=== PATIENT | male | born 1990 | race African-American/Black ===

== ENCOUNTER 2025-02-28 15:58 | Outpatient (AMB) | payer OTHER, SELFPAY ==
--- OUTSIDE RECORDS SUMMARY | 2017-12-06 19:00 | XMS_ITS | Continuity of Care Document ---
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 Name Role Phone Unavailable Unavailable Unavailable Allergies, Adverse Reactions, Alerts Substance Reaction Status Criticality No Known Allergies Active No Inform ation Procedures Procedure Date WRITTEN REPORT, MORE REFRACTION COMPREHENSIVE EYE EXAM Advance Directives Directive Yes / No Effective Date File Name No Information Encounters Encounter Description Practice Location Reason(s) For Visit Diagnoses Date Provider Providers Copied on Encounter [facility] , [address] [place] [address], [id number] , tel:[phone] Primary Care No Information No Information [facility] , [address] [place] [address], [id number] , tel:[phone] Primary Care Ocular wellness exam (chief complaint) Alternating exotropiaMyopia, bilateralRegular astigmatism, bilateral No Information Family History Family Member Type Diagnosis Age At Onset No Information Payers Payer name Insurance type Covered republican ID Authoriza tion(s) Medicare MB [id number] Social History Type Description Quantity Date Captured [...]
--- NOTE | 2025-02-28 15:58 | MHC.PC.OV ---
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 Cerebral Palsy: The patient has a history of cerebral palsy since . The patient is dependent on a walker for mobility at all times and leads a sedentary lifestyle. The patient underwent orthopedic surgery on both legs as a child. The guardian reports the patient has not received physical or occupational therapy since the age of [age] or [age]. Intellectual Disability: The patient's guardian reports that the patient has an intellectual disability. According to the guardian, the patient is unable to read or write, although the patient can write their name. The patient has not attended school or participated in work programs for the last 20 years. Seasonal Allergic Rhinitis: The patient reports being allergic to pollen in the spring. Establishment of Care: The patient recently relocated from [place] to [place], [place], and is establishing care with a new primary care provider. Prior medical care was received at [facility] in [facility]. The patient takes no medications and denies any history of smoking or illicit drug use. Surgical History: - Orthopedic surgery on both legs as a child. Medications: - The patient reports taking no medications. Social History: - The patient is a 34-year-old individual who recently moved from [place], [place], to [place], [place], with the patient's mother. - The patient's father is . - The patient's cousin is the legal guardian due to the patient's mother having an onset of dementia. - The patient denies any history of smoking or illicit drug use. - Functional Status: The patient is dependent on a walker for ambulation and lives a sedentary lifestyle. - Per the guardian, the patient is intellectually disabled and has not been involved in school or work for about 20 years. - The guardian has made home modifications, including installing grab bars and a ramp. Family History: - Father: History of diabetes and high blood pressure. - Mother: Onset of dementia. Past Medical History - Cerebral palsy, diagnosed at . - Intellectual disability, per guardian report. - Seasonal pollen allergy. - The patient has never been hospitalized for any issues. Health Maintenance - This visit serves as a routine checkup to establish primary care. - A comprehensive baseline lab panel was ordered, including CBC, comprehensive metabolic panel, thyroid function tests, vitamin B12, folate, vitamin D, lipid panel, HIV, and hepatitis B and C screening. [facility] Medical History (Updated 03/01/25 @ 08:08 by Luis Mendiola MD) Tachycardia Elevated BP without diagnosis of hypertension Seasonal allergic rhinitis Intellectual disability Cerebral palsy Family History (Updated 02/28/25 @ 16:13 by Shantanu Thompson MA) Father Diabetes High blood pressure Congestive heart failure Mother High blood pressure Social History Housing: House Patient Tobacco Use Status: Never used Tobacco service: No Current occupational status: disabled Cognitive needs: Yes Hearing needs: No Vision needs: No Questionnaire Thrive Questionnaire Date Thrive assessed: 02/18/25 I am a: Patient What is your living situation today?: I have a steady place to live Within the past 12 months, did the food you bought not last and you didn't have the money to get more?: Never true Within the past 12 months, did you worry whether your food would run out before you got money to buy more?: Never true Do you have trouble paying for medicines?: No Do you have trouble getting transportation to medical appointments?: No Do you have trouble paying your heating and electricity bill?: No Do you have trouble taking care of your child, family member or friend?: No Do you have trouble with day-to-day activities such as bathing, preparing meals, shopping, managing finances, etc.?: Yes Are you currently unemployed and looking for a job?: No Are you interested in more education?: I choose not to answer this question THRIVE Score: 0 Review of Systems Narrative Review of Systems - Allergic/Immunologic: Reports seasonal allergies to pollen in the spring. - Constitutional: Denies getting sick frequently. 10-point ROS reviewed and negative except as noted in HPI Physical exam (Primary Care) Vital Signs: Last Vital Signs Temp 97.5 F 02/28/25 16:02 Pulse 111 H 02/28/25 16:02 Resp 16 02/28/25 16:02 BP 140/79 H 02/28/25 16:02 Pulse Ox 94 02/28/25 16:02 Oxygen Delivery Method Room Air 02/28/25 16:02 BMI result Body Mass Index 21.0 Tobacco/Smoking Status: Tobacco use Status Tobacco use date assessed 02/28/25 02/28/25 15:59 Patient Tobacco Use Status Never used Tobacco 02/28/25 15:59 Thrive Assessment: Date of Thrive Assessment Date Thrive assessed 02/18/25 02/28/25 15:59 Narrative Physical Exam General: Well-appearing, in no acute distress. Vital signs: Within normal limits. HEENT: Normocephalic, atraumatic. PERRLA, EOMI. Conjunctiva clear, sclera anicteric. Oropharynx clear, mucous membranes moist. TMs intact bilaterally. Neck: Supple, no lymphadenopathy, no thyromegaly, no JVD or carotid bruits. Cardiovascular: RRR, normal S1/S2, no murmurs, rubs, or gallops. Peripheral pulses 2+ and symmetric. No edema. Respiratory: Lungs clear to auscultation bilaterally, no wheezes, rales, or rhonchi. Normal effort. Abdomen: Soft, non-tender, non-distended. Normoactive bowel sounds. No hepatosplenomegaly, no masses. MSK: Limited range of motion due to cerebral palsy. Scar noted on the right thigh. Uses a walker for ambulation. uses a walker, legs in genu valgus Skin: Warm, dry, intact. No rashes, lesions, or pallor. Neuro: Alert and oriented x3. Cranial nerves II-XII intact. Strength 5/5 throughout. Sensation intact. Reflexes 2+ symmetric. Normal coordination and gait. Psych: Appropriate mood and affect. Normal judgment and insight. Cognitive impairment noted; patient is intellectually disabled. Coding Level of Care Code New Pt Level 4 (45906) Diagnoses Cerebral palsy G80.9 Intellectual disability F79 Seasonal allergic rhinitis J30.2 Elevated BP without diagnosis of hypertension R03.0 Tachycardia R00.0 Assessment & Plan Assessment & Plan (1) Cerebral palsy: Code(s): G80.9 - Cerebral palsy, unspecified Category: Medical (2) Intellectual disability: Code(s): F79 - Unspecified intellectual disabilities Category: Medical (3) Seasonal allergic rhinitis: Code(s): J30.2 - Other seasonal allergic rhinitis Category: Medical (4) Elevated BP without diagnosis of hypertension: Code(s): R03.0 - Elevated blood-pressure reading, without diagnosis of hypertension Category: Medical (5) Tachycardia: Code(s): R00.0 - Tachycardia, unspecified Category: Medical Plan Consent The plan for a comprehensive blood panel was discussed with the patient and the patient's guardian to obtain a baseline of overall health. The specific tests to be ordered include a complete blood count, comprehensive metabolic panel, thyroid studies, vitamin B12, folate, vitamin D, lipid panel, HIV, and hepatitis B and C screening. The patient and guardian verbally consented to the plan. Patient was informed and verbally consented to the use of an ambient scribe for clinic note documentation during this visit. Plan 1. Cerebral Palsy - A referral will be placed for physical and occupational therapy. - Will complete the necessary paperwork for a handicap parking permit. - Will engage a community nurse navigator to assist with arranging SENIOR COMM[employer]CIAL LO[employer] OFFIC[employer] services and transportation. 2. Intellectual Disability - A referral will be provided to [facility] for a neuropsychological evaluation. - The community nurse navigator will assist the guardian in finding suitable community services and educational programs for the patient. 3. Health Maintenance / Establishment Of Care - Ordered a comprehensive lab panel including CBC, CMP, thyroid studies, vitamin levels (B12, Folate, D), lipid panel, and screening for HIV, Hepatitis B, and Hepatitis C. - Plan to follow up in two weeks to review the results and discuss the next steps. Discussion Notes I had a detailed discussion with the patient and the patient's guardian about the plan to establish care. I explained the rationale for ordering a comprehensive baseline blood panel to get a full picture of the patient's health. I provided a referral for neuropsychological testing to formally assess the patient's cognitive abilities and assist with eligibility for disability programs. We discussed placing referrals for physical and occupational therapy, as the patient has not received these services since childhood. I informed the guardian that our community nurse navigator will be in contact to help coordinate access to community resources, including S[employer]IOR [employer] LO[employer]ER and transportation services. We agreed on a follow-up appointment in two weeks to review test results and progress on referrals. Patient Instructions - Please go to the lab to have your blood drawn before your next visit. - Call [facility] at [phone] to schedule an appointment for neuropsychological testing. - We will make referrals for physical and occupational therapy for you. - Our community nurse navigator will contact you to help arrange community services, personal care assistance, and transportation. - Please return to the clinic for a follow-up appointment in two weeks. Medical Decision Making The patient is a 34-year-old individual with a complex medical and social history, including cerebral palsy and reported intellectual disability, who presents to establish primary care. The lack of recent medical records and the long interval since prior therapeutic interventions necessitate a comprehensive evaluation. Baseline laboratory studies are clinically indicated to screen for underlying metabolic, nutritional, or infectious diseases. Given the patient's dependence on a walker and sedentary lifestyle, referrals for physical and occupational therapy are essential to improve functional status and prevent complications of immobility. Formal neuropsychological testing is required to objectively assess the guardian's report of intellectual disability, which will be crucial for accessing appropriate educational, vocational, and support services. The patient's care is highly dependent on the guardian, who also has other caregiving responsibilities. Therefore, referral to our community nurse navigator is critical to connect the family with resources like SENIOR [employer]CIAL LO[employer]ER services and transportation to provide support, reduce caregiver strain, and promote the patient's integration into the community. Follow-up in two weeks is scheduled to review results and coordinate the multi-faceted care plan. Total Time Statement 30 min Total time spent caring for the patient today includes pre-visit chart review, documentation, review of laboratory and diagnostic imaging results, medication reconciliation, medically necessary evaluation, counseling on diagnoses, care coordination, ordering appropriate tests and medications, review of tests performed by other providers, reporting test results to the patient, and communication with other healthcare providers. Orders: Orders Complete Blood Count Auto Diff 02/28/25 Z13.9 - Encounter for screening, unspecified TSH reflex Free T4 02/28/25 Z13.9 - Encounter for screening, unspecified CT NG by PCR Urine 02/28/25 Z13.9 - Encounter for screening, unspecified UA CC w/rflx Micro + Cult 02/28/25 Z13.9 - Encounter for screening, unspecified Lipid Panel 02/28/25 Z13.9 - Encounter for screening, unspecified Vitamin B12 and Folate 02/28/25 Z13.9 - Encounter for screening, unspecified Hemoglobin A1c 02/28/25 Z13.9 - Encounter for screening, unspecified Hepatitis B Surface Antibody 02/28/25 Z13.9 - Encounter for screening, unspecified PT Evaluation and Treatment 02/28/25 G80.9 - Cerebral palsy, unspecified OT Evaluation and Treatment 02/28/25 G80.9 - Cerebral palsy, unspecified Hepatitis B Surface Antigen 02/28/25 Z13.9 - Encounter for screening, unspecified Comprehensive Met. Panel 02/28/25 Z13.9 - Encounter for screening, unspecified Hepatitis C Antibody 02/28/25 Z13.9 - Encounter for screening, unspecified HIV Ab/Ag 02/28/25 Z13.9 - Encounter for screening, unspecified Magnesium 02/28/25 Z13.9 - Encounter for screening, unspecified Vitamin D 1,25 dihydroxy 02/28/25 Z13.9 - Encounter for screening, unspecified
[2025-02-28 16:02] VITALS: BP 140/79; PULSE 111; RESP 16; TEMP 36.4; O2SAT 94; BMI 21.0
== END 2025-02-28 16:36 | disposition home or self-care (01) ==
LOC: HO.HMCFMS 15:59
PROVIDERS: PCP Student in an Organized Health Care Education/Training Program; Visit Provider Student in an Organized Health Care Education/Training Program
DX: G80.9 Cerebral palsy, unspecified (principal); F79 Unspecified intellectual disabilities; J30.2 Other seasonal allergic rhinitis; R03.0 Elevated blood-pressure reading, without diagnosis of hypertension; R00.0 Tachycardia, unspecified

== ENCOUNTER → 2025-02-28 15:58 | Outpatient (BNVA) | payer OTHER, SELFPAY | PROVIDERS: PCP Student in an Organized Health Care Education/Training Program; Visit Provider Student in an Organized Health Care Education/Training Program | DX: Z00.00 Encounter for general adult medical examination without abnormal findings (principal); G80.9 Cerebral palsy, unspecified; F79 Unspecified intellectual disabilities; J30.2 Other seasonal allergic rhinitis; R03.0 Elevated blood-pressure reading, without diagnosis of hypertension; Z55.0 Illiteracy and low-level literacy; Z13.30 Encounter for screening examination for mental health and behavioral disorders, unspecified | CPT/HCPCS: 96127; 99202 ==

== ENCOUNTER 2025-03-05 10:01 | Outpatient (REF) | payer OTHER, SELFPAY ==
--- OUTSIDE RECORDS SUMMARY | 2017-12-06 19:00 | XMS_ITS | Continuity of Care Document ---
Author Organization [facility] Address [address] [address] Phone Care Team Providers Care Technology Engineer Name Role Phone Unavailable Unavailable Unavailable Allergies, Adverse Reactions, Alerts Substance Reaction Status Criticality No Known Allergies Active No Inform ation Procedures Procedure Date WRITTEN REPORT, MORE REFRACTION COMPREHENSIVE EYE EXAM Advance Directives Directive Yes / No Effective Date File Name No Information Encounters Encounter Description Practice Location Reason(s) For Visit Diagnoses Date Provider Providers Copied on Encounter [facility] , [address] [place] [address], [id number] , tel:[phone] Primary Care No Information No Information [facility] , [address] [place] [address], [id number] , tel:[phone] Primary Care Ocular wellness exam (chief complaint) Alternating exotropiaMyopia, bilateralRegular astigmatism, bilateral No Information Family History Family Member Type Diagnosis Age At Onset No Information Payers Payer name Insurance type Covered libertarian ID Authoriza tion(s) Medicare MB [id number] Social History Type Description Quantity Date Captured Comments Sex Male Smoking Status No Information Chief Complaint And Reason For Visit No Information Reason For Referral Reason For Referral No Information History Of Present Illness Encounter Date Complaint History Of Prese nt Illness Ocular wellness exam 26 yo BM wi th hx of Cerebral Palsy presents for eye exam--Pt reports no complaints. He lost glasses a long time ago . Pt reports he uses computer every evening and sits about 1 foot away from it. (+) seasonal allergies--reports itching, does not use any medsNo changes medical hx per pt. Functional Status Date Functional Assessmen t No Information Instructions Date Instruction Additional Infor hermila Impression/Plan - -- BCVA 20/20 OD+OS, pt happy with vision, not cosmetically concerned at this time--monitor yearly Follow up - Return i n [address] Kendra Flood for Wellness Exam. Assessments Type Assessment Date No Information Patient Care Teams Name Effective Dates (start - stop) Status Members No Information
[2025-03-05 14:07] LABS: MANUAL DIFF FLAG NO
[2025-03-05 14:16] LABS: Hematocrit 44.9 % (42.0-52.0); Hemoglobin 14.1 g/dl (14.0-18.0); Imm Gran Abs Auto 0.02 X10*3/uL (0.00-0.03); Imm Gran Pct Auto 0.3 % (0.0-0.4); Lymphocytes Absolute Auto 1.5 X10*3/uL (1.2-4.9); Mean Corpuscular HGB Conc 31.4 g/dl (31.0-36.0); Mean Corpuscular Hemoglobin 28.8 pg (27.0-33.0); Mean Corpuscular Volume 91.6 fL (80.0-98.0); NRBC Abs Auto 0.000 X10*3/uL (0.0-0.012); NRBC Pct Auto 0.0 /100WBC (0.0-0.2); Platelet Count 241 X10*3/uL (160-400); Red Blood Count 4.90 X10*6/uL (4.60-5.80); White Blood Count 7.2 X10*3/uL (4.8-10.8)
[2025-03-05 14:58] LABS: Total Hemoglobin (HGBA1C) 2448.0489 umol/L
[2025-03-05 18:49] LABS: Alanine Aminotransferase 41 U/L (0-40); Albumin Level 4.6 g/dL (3.5-5.0); Alkaline Phosphatase 89 U/L (39-117); Anion Gap 9 (12-20); Aspartate Amino Transferase 35 U/L (5-37); Blood Urea Nitrogen 15 mg/dL (9-16); Calcium 9.4 mg/dL (8.4-10.2); Carbon Dioxide 30 mmol/L (22-29); Chloride 106 mmol/L (96-108); Cholesterol 119 mg/dL (<200); Estimated Glomerular Filt Rate > 60; HDL Cholesterol 40 mg/dL (>40); Magnesium 1.9 mg/dL (1.6-2.6); Potassium 4.3 mmol/L (3.3-5.1); Sodium 141 mmol/L (135-145); Total Protein 7.6 g/dL (6.5-8.0); Triglycerides 89 mg/dL (<150)
[2025-03-05 19:22] LABS: Folate 13.3 ng/mL (> or = 4.0); Vitamin B12 535 pg/mL (200-900)
[2025-03-06 05:30] LABS: HBS Num1 70.02 mIU/mL (0-7.99); HBsAGNum1 0.37 S/CO (0.00-0.99); HIV Num 1 0.06 S/CO (0.00-0.99); Hepatitis B Surface Antigen Negative (Negative); ~HepC Num1 0.15 S/CO (0.00-0.79); ~Hepatitis B Surface Antibody REACTIVE (Nonreactive); ~Hepatitis C Antibody Nonreactive (Nonreactive)
[2025-03-10 15:12] LABS: VITAMIN D (1,25 OH) D3 45 pg/mL; Vit D (1,25-Dihydroxy) Total 45 pg/mL (18-72); Vitamin D (1,25 OH) D2 <8 pg/mL
== END 2025-03-05 10:02 | disposition home or self-care (01) ==
LOC: HO.HKASLDS 10:01
PROVIDERS: PCP Student in an Organized Health Care Education/Training Program; Visit Provider Student in an Organized Health Care Education/Training Program
DX: Z13.89 Encounter for screening for other disorder (principal); Z11.4 Encounter for screening for human immunodeficiency virus [HIV]; Z13.21 Encounter for screening for nutritional disorder; Z13.29 Encounter for screening for other suspected endocrine disorder; Z13.1 Encounter for screening for diabetes mellitus; Z13.6 Encounter for screening for cardiovascular disorders
CPT/HCPCS: 36415; 80053; 80061; 82607; 82652; 82746; 83036; 83735; 84443; 85025; 86706; 86803; 87340; 87389

== ENCOUNTER 2025-03-22 12:57 | Outpatient (AMB) | payer OTHER, SELFPAY ==
--- NOTE | 2025-03-22 13:00 | A.OFFPC_ITS ---
Vital Signs 03/22/25 13:05 Height 5 ft 8 in Weight 138 lb BMI 21.0 BP 139/80 Blood Pressure Location Rt brachial Position Sitting Respiration 18 Pulse 111 H Pulse Source Pulse Oximeter Temp 98.2 F Temp Source Oral Pulse Oximetry (%) 97 Oxygen Delivery Method Room Air Intake Visit Reasons: lab review Intake Note: lab review Senior Compensation Consultant Required: No Accompanied by: Mother Allergies No Known Allergies Allergy (Verified 03/22/25 13:04) Medication List - Last Reconciled 03/22/25 by Luis Mendiola MD No Known Home Meds Tobacco use date assessed: 02/28/25 Dental Screening Dental Screen Date: 02/28/25 HPI HPI Comments History of Present Illness Details History of Present Illness The patient is a 34 year old male presenting for a review of recent lab results. Health Maintenance: The patient presented for a follow-up visit to review recent laboratory findings. Borderline low HDL cholesterol: The patient's good cholesterol is borderline at 40 mg/dL, with the reference range being 40 mg/dL and above. Diagnostic Results: - Labs: - Complete blood count: White blood cell s, red blood cells, hemoglobin, hematocrit, and platelets are normal. - Comprehensive metabolic panel: Sodium, potassium, and kidney function are normal. - Glucose: Random glucose and Hemoglobin A1c are normal, ruling out prediabetes and diabetes. - Electrolytes: Calcium and magnesium ar e normal. - Liver function tests: Normal. - Lipid panel: Total protein, albumin, t riglycerides, total cholesterol, and LDL cholesterol are normal. - HDL cholesterol: 40 mg/dL (borderline) . - Vitamin B12: 535 pg/mL (normal). - Vitamin D, Folate, and Thyroid functio n tests: Normal. - Infectious disease screening: Hepatiti s B, Hepatitis C, and HIV are negative. - Urinalysis: Not collected. Past Medical History Health Maintenance - Lab results were reviewed and found to be unremarkable except for a borderline low HDL. - The patient will be introduced to a [facility] navigator, Raquel, to help coordinate care, including initiating physical and occupational therapy. 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 Tachycardia Elevated BP without diagnosis of hypertension Seasonal allergic rhinitis Intellectual disability Cerebral palsy Family History Father Diabetes High blood pressure Congestive heart failure Mother High blood pressure Social History (Updated 03/22/25 @ 13:05 by Huseyin White CMA) Housing: House Alcohol intake: never Patient Tobacco Use Status: Never used Tobacco e-Cigarette/Vaping Use: Never Used Use of substances other than those prescribed or required for medical reasons: No service: No Current occupational status: disabled Cognitive needs: Yes Hearing needs: No Vision needs: No Questionnaire Thrive Questionnaire Date Thrive assessed: 02/18/25 I am a: Patient What is your living situation today?: I have a steady place to live Within the past 12 months, did the food you bought not last and you didn't have the money to get more?: Never true Within the past 12 months, did you worry whether your food would run out before you got money to buy more?: Never true Do you have trouble paying for medicines?: No Do you have trouble getting transportation to medical appointments?: No Do you have trouble paying your heating and electricity bill?: No Do you have trouble taking care of your child, family member or friend?: No Do you have trouble with day-to-day activities such as bathing, preparing meals, shopping, managing finances, etc.?: Yes Are you currently unemployed and looking for a job?: No Are you interested in more education?: I choose not to answer this question Currently or been in a relationship where the following occur: No concerns reported THRIVE Score: 0 Review of Systems Narrative Review of Systems - Genitourinary: Denies any issues with urination. 10-point ROS reviewed and negative except as noted in HPI Physical exam (Primary Care) Vital Signs: Last Vital Signs Temp 98.2 F 03/22/25 13:05 Pulse 111 H 03/22/25 13:05 Resp 18 03/22/25 13:05 BP 139/80 03/22/25 13:05 Pulse Ox 97 03/22/25 13:05 Oxygen Delivery Method Room Air 03/22/25 13:05 BMI result Body Mass Index 21.0 Tobacco/Smoking Status: Tobacco use Status Tobacco use date assessed 02/28/25 03/22/25 13:02 Patient Tobacco Use Status Never used Tobacco 03/22/25 13:05 e-Cigarette/Vaping Use Never Used 03/22/25 13:07 Thrive Assessment: Date of Thrive Assessment Date Thrive assessed 02/18/25 03/22/25 16:01 Currently or been in a relationship where the following occur: No concerns reported Narrative Physical Exam General: Well-appearing, in no acute distress. Vital signs: Within normal limits. HEENT: Normocephalic, atraumatic. PERRLA, EOMI. Conjunctiva clear, sclera anicteric. Oropharynx clear, mucous membranes moist. TMs intact bilaterally. Neck: Supple, no lymphadenopathy, no thyromegaly, no JVD or carotid bruits. Cardiovascular: RRR, normal S1/S2, no murmurs, rubs, or gallops. Peripheral pulses 2+ and symmetric. No edema. Respiratory: Lungs clear to auscultation bilaterally, no wheezes, rales, or rhonchi. Normal effort. Abdomen: Soft, non-tender, non-distended. Normoactive bowel sounds. No hepatosplenomegaly, no masses. MSK: Full range of motion, no joint swelling or deformity. ?Gait is spastic with decreased step length and limited ankle dorsiflexion, requiring rollator support for stability.? Skin: Warm, dry, intact. No rashes, lesions, or pallor. Neuro: Alert and oriented x3. Cranial nerves II-XII intact. Strength 5/5 throughout. Sensation intact. Reflexes 2+ symmetric. Normal coordination and gait. Psych: Appropriate mood and affect. Normal judgment and insight. 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 Plan 1. Borderline Low High-Density Lipoprotein Cholesterol - HDL cholesterol is 40 mg/dL, which is considered borderline. - The patient was reassured that this is not a significant concern at this time. 2. Referral For Neurobehavioral Assessment - The patient needs to follow up on a referral for a neurobehavioral assessment. - Contact information for [facility] was provided again. Discussion Notes I reviewed the patient's recent lab results with him, which were all within normal limits, including a complete blood count, metabolic panel, liver function, and infectious disease screening. I noted his HDL cholesterol was borderline at 40, but reassured him it's not a concern. We also discussed the plan to introduce him to our nurse navigator, Raquel, to help facilitate referrals for physical therapy, occupational therapy, and to connect with any necessary resources. I provided the contact information for [facility] again, as he had misplaced it, for him to schedule a neurobehavioral assessment. Patient Instructions - We reviewed your lab results, and they look great. - Your cholesterol, blood counts, and tests for diabetes, liver, and kidney function are all normal. - Please call [facility] at [phone] to schedule a neurobehavioral assessment. - You will meet with our nurse navigator, Raquel, who will help you get set up with physical therapy and occupational therapy. Medical Decision Making The patient presented for a review of his recent labs. His comprehensive lab work, including CBC, CMP, HbA1c, LFTs, and infectious disease screens, was reviewed and found to be unremarkable. The only notable finding was a borderline HDL of 40, which is of low clinical significance at this time and requires no immediate action. The main focus of the visit was care coordination. The patient needs to establish care with PT, OT, and a neurobehavioral specialist. To facilitate this, a referral to the in-house nurse navigator was made to assist the patient with scheduling these appointments and navigating resources. The contact information for the neurobehavioral assessment was provided to the patient to empower him to initiate contact. Total Time Statement 20 min Total time spent caring for the patient today includes pre-visit chart review, documentation, review of laboratory and diagnostic imaging results, medication reconciliation, medically necessary evaluation, counseling on diagnoses, care coordination, ordering appropriate tests and medications, review of tests performed by other providers, reporting test results to the patient, and communication with other healthcare providers.
[2025-03-22 13:05] VITALS: BP 139/80; PULSE 111; RESP 18; TEMP 36.8; O2SAT 97; BMI 21.0
--- NOTE | 2025-03-22 16:01 | MHC.COMNAV ---
Intake Vital Signs 03/22/25 13:05 Height 5 ft 8 in Weight 138 lb BMI 21.0 BP 139/80 Blood Pressure Location Rt brachial Position Sitting Respiration 18 Pulse 111 H Pulse Source Pulse Oximeter Temp 98.2 F Temp Source Oral Pulse Oximetry (%) 97 Oxygen Delivery Method Room Air Intake Visit Reasons: lab review Allergies No Known Allergies Allergy (Verified 03/22/25 13:04) Medication List - Last Reconciled 03/22/25 by Luis Mendiola MD No Known Home Meds [facility] Medical History (Updated 03/24/25 @ 19:55 by Luis Mendiola MD) Diplegic gait Other abnormalities of gait and mobility 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 Tachycardia Elevated BP without diagnosis of hypertension Seasonal allergic rhinitis Intellectual disability Cerebral palsy Family History Father Diabetes High blood pressure Congestive heart failure Mother High blood pressure Social History (Updated 03/22/25 @ 13:05 by Huseyin White CMA) Housing: House Alcohol intake: never Patient Tobacco Use Status: Never used Tobacco e-Cigarette/Vaping Use: Never Used Use of substances other than those prescribed or required for medical reasons: No service: No Current occupational status: disabled Cognitive needs: Yes Hearing needs: No Vision needs: No Community Navigation Community Navigation Self-care plan Self-care plan status New Goals coordination of care, continued therapeutic health regimen Barriers caregiving strain, low health literacy Action met with pt and caregivers, parent with pt but this person is not a caregiver as they have dx of dementia themselves, caregiving cousin is very involved and provides all physical care, cousin present at this meet. caregiver notes significant strain for all points of caregiving at home and pt and caregiver both recognize need to continue PT and OT but have fallen off medical regimen for too long. this RN will provide assistance to obtain assessments and appts for PT/OT. pt has all information to call [facility] for assmt which is necessary in order to obtain day program referral. PT and OT to be ordered [facility], caregiver aware that OT may not be here at [facility] office, but PT will be. caregiver and pt able to teach back all points of continuing care. pt/caregiver will call for behavioral health assmt [facility] today, other appts will be made for PT and OT as soon as possible. this nurse navigator gave caregiver information re: physical home care and homemaking, noting that both parent and pt may qualify the home for multiple services that could decrease some caregiving strain. caregiver agrees. Patient response teach back Questionnaires Thrive Questionnaire Date Thrive assessed: 02/18/25 I am a: Patient What is your living situation today?: I have a steady place to live Within the past 12 months, did the food you bought not last and you didn't have the money to get more?: Never true Within the past 12 months, did you worry whether your food would run out before you got money to buy more?: Never true Do you have trouble paying for medicines?: No Do you have trouble getting transportation to medical appointments?: No Do you have trouble paying your heating and electricity bill?: No Do you have trouble taking care of your child, family member or friend?: No Do you have trouble with day-to-day activities such as bathing, preparing meals, shopping, managing finances, etc.?: Yes Are you currently unemployed and looking for a job?: No Are you interested in more education?: I choose not to answer this question Currently or been in a relationship where the following occur: No concerns reported THRIVE Score: 0 Coding Level of Care Code Est Pt Level 1 (88277)
== END 2025-03-22 13:39 | disposition home or self-care (01) ==
LOC: HO.HMCFMS 12:58
PROVIDERS: PCP Student in an Organized Health Care Education/Training Program; Visit Provider Student in an Organized Health Care Education/Training Program
DX: G80.9 Cerebral palsy, unspecified (principal); G80.0 Spastic quadriplegic cerebral palsy; R26.89 Other abnormalities of gait and mobility

== ENCOUNTER → 2025-03-22 12:57 | Outpatient (BNVA) | payer OTHER, SELFPAY | PROVIDERS: PCP Student in an Organized Health Care Education/Training Program; Visit Provider Student in an Organized Health Care Education/Training Program | DX: Z71.2 Person consulting for explanation of examination or test findings (principal); G80.9 Cerebral palsy, unspecified; G80.0 Spastic quadriplegic cerebral palsy; R26.89 Other abnormalities of gait and mobility | CPT/HCPCS: 99212 ==